=== PATIENT | male | born 1960 | race Caucasian/White ===

== ENCOUNTER 2017-08-23 20:20 | Inpatient (IN) | payer SELFPAY ==
[2017-08-23] MEDS ORDERED: Ampicillin/Sulbactam Na 3 GM in Sodium Chloride 0.9% 100 ML IV ONE (21:28)
--- NOTE | 2017-08-23 21:29 | EDM.PDOC ---
ED HPI GENERAL MEDICAL PROBLEM - General Chief Complaint: ENT Problem Stated Complaint: ISSUES BREATHING CURTIS ON WEDNESDAY Time Seen by Provider: 08/23/17 21:08 Source of Information: Reports: Patient History Limitations: Reports: No Limitations - History of Present Illness INITIAL COMMENTS - FREE TEXT/NARRATIVE: The patient states that he developed a foreign body sensation in his throat about one week ago. He states that it hurts to swallow, especially on the right. He states that he feels like he is choking, although does not have any difficulty breathing or speaking He has been taking ibuprofen, which initially helped a great deal, up until last night, when it stopped working. The patient acknowledges that he took 3 doses of some leftover antibiotics - he does not recall the name - on 08/16/2017 and 08/17/2017, which also did not help at all. He states that he was seen at the walk-in clinic this past Wednesday, 2017. He states that no tests were done, but that he was diagnosed with TMJ and prescribed Flexeril, which he states has not helped at all. The patient denies recent fever, nausea, vomiting, cuts patient, or diarrhea. The patient does not have a PCP. He does not recall when his last general physical exam was. Right Upper Neck Pain Score (Numeric/FACES): 6 - Related Data Allergies Allergy/AdvReac Type Severity Reaction Status Date / Time No Known Allergies Allergy Verified 08/23/17 20:30 Home Meds: Home Meds Cyclobenzaprine [Flexeril] 5 mg PO TID PRN 08/23/17 [History] Past Medical History Endocrine/Metabolic History: Reports: Obesity/BMI 30+ - Past Surgical History HEENT Surgical History: Reports: Oral Surgery ([place] teeth extraction) GI Surgical History: Reports: Hernia, Abdominal (umbilical, 2015) Neurological Surgical History: Reports: Lumbar Spine (laminectomy, 2013) Musculoskeletal Surgical History: Reports: Carpal Tunnel (right, 2011) Oncologic Surgical History: Reports: Other (See Below) (Basal cell carcinoma excised from left nostril 07/16/2017) Social & Family History - Family History Family Medical History: Noncontributory - Tobacco Use Smoking Status *Q: Former Smoker Years of Tobacco use: 37 Packs/Tins Daily: 1 Month/Year Tobacco Last Used: Quit 2015 - Alcohol Use Alcohol Use History: No - Recreational Drug Use Recreational Drug Use: No - Living Situation & Occupation Living situation: Reports: , with Spouse 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 ED EXAM, ENT - Physical Exam Exam: See Below Exam Limited By: No Limitations General Appearance: Alert, WD/WN, No Apparent Distress Eye Exam: Bilateral Eye: Normal Inspection Ears: Normal External Exam, Normal Canal, Hearing Grossly Normal, Normal TMs Nose: Normal Mucousa, No Blood, Other (Scar left nare) Mouth/Throat: Normal Gums, Normal Lips, Normal Teeth, Pharyngeal Erythema (On the right, with significant swelling and uvular deviation, consistent with peritonsillar cellulitis. The airway is not threatened.) Head: Atraumatic, Normocephalic Neck: Normal Inspection, Supple, Full Range of Motion. No: Lymphadenopathy (L) , Lymphadenopathy (R) (but tender to palpation) Respiratory/Chest: No Respiratory Distress, Lungs Clear, Normal Breath Sounds, No Accessory Muscle Use Cardiovascular: Normal Peripheral Pulses, Regular Rate, Rhythm, No Edema, No Gallop, No JVD, No Murmur, No Rub GI/Abdominal: Normal Bowel Sounds, Soft, Non-Tender, No Organomegaly, No Distention, No Abnormal Bruit, No Mass, Other (Obese) (Male) Exam: Deferred Rectal (Males) Exam: Deferred Back: Normal Inspection, Full Range of Motion Extremities: Normal Inspection, Normal Range of Motion, No Pedal Edema, Normal Capillary Refill Neurological: Alert, Oriented, Normal Cognition, No Motor/Sensory Deficits Psychiatric: Normal Affect Skin: Warm, Dry, Intact, Normal Color, No Rash Course - Vital Signs Last Recorded V/S: Last Vital Signs Temp 36.9 C 08/23/17 20:24 Pulse 94 08/23/17 20:24 Resp 16 08/23/17 20:24 BP 167/110 H 08/23/17 20:24 Pulse Ox 98 08/23/17 20:24 - Orders/Labs/Meds Orders: Active Orders 24 hr Category Date Time Status Soft Tissue Neck w Cont [CT] Stat Exams 08/23/17 21:23 Taken CBC WITH MANUAL DIFF [HEME] Stat Lab 08/23/17 21:35 Results Sodium Chloride 0.9% [Normal Saline] 1,000 ml Med 08/23/17 21:30 Active IV ASDIRECTED Sodium Chloride 0.9% [Saline Flush] Med 08/23/17 21:30 Active 10 ml FLUSH ONETIME PRN Medication Orders Sodium Chloride (Normal Saline) 1,000 mls @ 150 mls/hr IV ASDIRECTED TYE Last Admin: 08/23/17 21:47 Dose: 150 mls/hr Sodium Chloride (Saline Flush) 10 ml FLUSH ONETIME PRN PRN Reason: Keep Vein Open Last Admin: 08/23/17 21:46 Dose: 10 ml Labs: Laboratory Tests 08/23/17 08/23/17 Range/Units 21:35 21:35 WBC 9.75 H (4.23-9.07) K/mm3 RBC 4.97 (4.63-6.08) M/mm3 Hgb 14.5 (13.7-17.5) gm/L Hct 43.2 (40.1-51.0) % MCV 86.9 (79.0-92.2) fl MCH 29.2 (25.7-32.2) pg MCHC 33.6 (32.2-35.5) g/dl RDW Std Deviation 39.1 (35.1-43.9) fL Plt Count 270 (163-337) K/mm3 MPV 10.0 (9.4-12.3) fl Sodium 140 (136-145) mEq/L Potassium 4.0 (3.5-5.1) mEq/L Chloride 106 (98-107) mEq/L Carbon Dioxide 26 (21-32) mEq/L Anion Gap 12.0 (5-15) BUN 18 (7-18) mg/dL Creatinine 1.2 (0.7-1.3) mg/dL Est Cr Clr Drug Dosing 67.29 mL/min Estimated GFR (MDRD) > 60 (>60) mL/min BUN/Creatinine Ratio 15.0 (14-18) Glucose 107 H (74-106) mg/dL Calcium 8.9 (8.5-10.1) mg/dL Total Bilirubin 0.5 (0.2-1.0) mg/dL AST 19 (15-37) U/L ALT 41 (16-63) U/L Alkaline Phosphatase 70 (46-116) U/L Total Protein 7.1 (6.4-8.2) g/dl Albumin 3.5 (3.4-5.0) g/dl Globulin 3.6 gm/dL Albumin/Globulin Ratio 1.0 (1-2) Meds: Medications Generic Name Dose Route Start Last Admin Trade Name Freq PRN Reason Stop Dose Admin Sodium Chloride 1,000 mls @ 150 mls/hr 08/23/17 21:30 08/23/17 21:47 Normal Saline IV 150 mls/hr ASDIRECTED TYE Administration Sodium Chloride 10 ml 08/23/17 21:30 08/23/17 21:46 Saline Flush FLUSH 10 ml ONETIME PRN Administration Keep Vein Open Discontinued Medications Generic Name Dose Route Start Last Admin Trade Name Freq PRN Reason Stop Dose Admin Ampicillin Sodium/Sulbactam 100 mls @ 200 mls/hr 08/23/17 21:28 08/23/17 21: 48 Sodium 3 gm/ Sodium Chloride IV 08/23/17 21:57 200 mls/hr ONETIME ONE Administration Iopamidol 100 ml 08/23/17 21:30 08/23/17 21:46 Isovue-300 (61%) IVPUSH 08/23/17 21:31 80 ml ONETIME ONE Administration - Re-Assessments/Exams Free Text/Narrative Re-Assessment/Exam: 08/23/17 21:27 On examination, the patient appears to have right peritonsillar cellulitis, however, I have ordered a CT scan of the soft tissue of the neck, with contrast , to make sure that he does not have a peritonsillar abscess. In the meantime, I have ordered empiric Unasyn. 08/23/17 22:24 CT of the neck with IV contrast is read by virtual radiology as: Enlarged, low-attenuation [place] tonsil right side. The low-attenuation suggests a developing abscess but no defined, drainable abscess evident at this time. 08/23/17 23:05 Test results discussed with the patient. Current guidelines recommend IV antibiotics, therefore I recommended that the patient be admitted to the hospital. He agreed. Case then discussed with Dr. Marie at 23:02. She accepts the patient for permission to telemetry. Departure - Departure Time of Disposition: 23:06 Disposition: Admitted As Inpatient 67 Condition: Fair Clinical Impression: Peritonsillar cellulitis - Discharge Information - My Orders Last 24 Hours: My Active Orders 08/23/17 21:23 Soft Tissue Neck w Cont [CT] Stat 08/23/17 21:30 Sodium Chloride 0.9% [Normal Saline] 1,000 ml IV ASDIRECTED Sodium Chloride 0.9% [Saline Flush] 10 ml FLUSH ONETIME PRN 08/23/17 21:35 CBC WITH MANUAL DIFF [HEME] Stat - Assessment/Plan Last 24 Hours: My Active Orders 08/23/17 21:23 Soft Tissue Neck w Cont [CT] Stat 08/23/17 21:30 Sodium Chloride 0.9% [Normal Saline] 1,000 ml IV ASDIRECTED Sodium Chloride 0.9% [Saline Flush] 10 ml FLUSH ONETIME PRN 08/23/17 21:35 CBC WITH MANUAL DIFF [HEME] Stat
[2017-08-23] MEDS ORDERED: Iopamidol 612 MG/ML 100 ML Bottle IVPUSH ONE (21:30)
[2017-08-23] MEDS ORDERED: Sodium Chloride 0.9% 1,000 ML IV SCH (21:30)
[2017-08-23] MEDS ORDERED: Sodium Chloride 0.9% 10 ML Syringe FLUSH PRN (21:30)
[2017-08-24] MEDS ORDERED: Ibuprofen 600 MG Tab PO PRN (01:00)
[2017-08-24] MEDS ORDERED: Temazepam 15 MG Cap PO PRN (01:01)
[2017-08-24] MEDS ORDERED: Acetaminophen Soln 650 MG/20.3 ML UD Cup PO PRN (01:04)
[2017-08-24] MEDS: methylPREDNISolone Sodium Succinate 125 MG/2 ML SDV IVPUSH SCH ×3 (01:18→16:53)
[2017-08-24] MEDS ORDERED: Morphine 2 MG/ML Syringe IVPUSH PRN (01:31)
[2017-08-24] MEDS: Ampicillin/Sulbactam Na 3 GM in Sodium Chloride 0.9% 100 ML IV SCH ×3 (04:08→16:53)
--- NOTE | 2017-08-24 09:53 | PCM.HP ---
H&P History of Present Illness - General Date of Service: 08/24/17 Admit Problem/Dx: Admission Diagnosis/Problem Admission Diagnosis/Problem Peritonsillar cellulitis Source of Information: Patient History Limitations: Reports: No Limitations - History of Present Illness Initial Comments - Free Text/Narative: 56 year old male who had a [place] chip stuck in his throat approximately 1 week prior to admission. He reported taking random, unknown antibiotic pills which were left over from a previous infection on probably Wednesday, 08/17. On Wednesday, 08/18, he reportedly went to a walk in clinic, and was diagnosed with TMJ receiving a prescription for Flexeril. Subsequently he has been diagnosed with a peritonsillar cellulitis without airway compromise and will be admitted for IV antibiotics. Onset of Symptoms: Reports: Gradual Symptom Onset Date: 08/16/17 Duration of Symptoms: Reports: Week(s):, Getting Worse Location: Reports: Neck Quality: Reports: Throbbing Severity: Moderate Improves with: Reports: Medication Worsens with: Reports: None Associated Symptoms: Reports: Loss of Appetite, Malaise Right Upper Neck Pain Score (Numeric/FACES): 6 - Related Data Allergies/Adverse Reactions: Allergies Allergy/AdvReac Type Severity Reaction Status Date / Time No Known Allergies Allergy Verified 08/24/17 05:28 Home Medications: Home Meds . [No Known Home Meds] 08/24/17 [History] Past Medical History Endocrine/Metabolic History: Reports: Obesity/BMI 30+ Oncologic (Cancer) History: Reports: Basal Cell Carcinoma - Past Surgical History HEENT Surgical History: Reports: Oral Surgery, Other (See Below) Other HEENT Surgeries/Procedures: wears contacts GI Surgical History: Reports: Hernia, Abdominal Endocrine Surgical History: Reports: None Neurological Surgical History: Reports: Lumbar Spine Musculoskeletal Surgical History: Reports: Carpal Tunnel Oncologic Surgical History: Reports: Other (See Below) Social & Family History - Family History Family Medical History: Noncontributory - Tobacco Use Smoking Status *Q: Former Smoker Years of Tobacco use: 37 Packs/Tins Daily: 1 Used Tobacco, but Quit: No Month/Year Tobacco Last Used: Quit 2016 Tobacco Use Comment: pt states that he smoked for about 30 years and quit in 2016. 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) H&P Review of Systems - Review of Systems: Review Of Systems: See Below General: Reports: Malaise HEENT: Reports: Sore Throat Pulmonary: Reports: No Symptoms Cardiovascular: Reports: No Symptoms Gastrointestinal: Reports: No Symptoms Genitourinary: Reports: No Symptoms Musculoskeletal: Reports: No Symptoms Skin: Reports: No Symptoms Psychiatric: Reports: No Symptoms Neurological: Reports: No Symptoms Hematologic/Lymphatic: Reports: No Symptoms Immunologic: Reports: No Symptoms Exam - Exam Exam: See Below - Vital Signs Vital Signs: Last Vital Signs Temp 37.3 C 08/24/17 04:12 Pulse 65 08/24/17 04:12 Resp 2 L 08/24/17 04:12 BP 128/84 08/24/17 04:12 Pulse Ox 92 L 08/24/17 04:12 Weight: 109.543 kg - Exam General: Alert, Oriented, Cooperative HEENT: Conjunctiva Clear, Mucosa Moist & [place], Pupils Equal, Pupils Reactive, Other (mild erythema, post pharynx), PERRLA Neck: Trachea Midline Lungs: Normal Respiratory Effort Cardiovascular: Regular Rate, Regular Rhythm GI/Abdominal Exam: Normal Bowel Sounds, Soft, Non-Tender, No Organomegaly, No Distention (Male) Exam: Deferred Rectal (Males) Exam: Deferred Back Exam: Normal Inspection Extremities: Normal Inspection, Non-Tender, No Pedal Edema Skin: Warm Neurological: Cranial Nerves Intact Neuro Extensive - Mental Status: Alert, Oriented x3, Normal Mood/Affect, Normal Cognition, Memory Intact Neuro Extensive - Motor, Sensory, Reflexes: CN II-XII Intact, Normal Gait, Normal Reflexes Psychiatric: Alert, Normal Affect, Normal Mood - Patient Data Lab Results Last 24 hrs: Laboratory Results - last 24 hr 08/23/17 08/23/17 08/24/17 Range/Units 21:35 21:35 06:10 WBC 9.75 H 8.37 (4.23-9.07) K/mm3 RBC 4.97 5.09 (4.63-6.08) M/mm3 Hgb 14.5 15.1 (13.7-17.5) gm/L Hct 43.2 44.1 (40.1-51.0) % MCV 86.9 86.6 (79.0-92.2) fl MCH 29.2 29.7 (25.7-32.2) pg MCHC 33.6 34.2 (32.2-35.5) g/dl RDW Std Deviation 39.1 39.0 (35.1-43.9) fL Plt Count 270 270 (163-337) K/mm3 MPV 10.0 10.1 (9.4-12.3) fl Neut % (Auto) 89.3 H (34.0-67.9) % Lymph % (Auto) 9.1 L (21.8-53.1) % [place] % (Auto) 1.2 L (5.3-12.2) % Eos % (Auto) 0 L (0.8-7.0) Baso % (Auto) 0.2 (0.1-1.2) % Neut # (Auto) 7.47 H (1.78-5.38) K/mm3 Lymph # (Auto) 0.76 L (1.32-3.57) K/mm3 [place] # (Auto) 0.10 L (0.30-0.82) K/mm3 Eos # (Auto) 0.00 L (0.04-0.54) K/mm3 Baso # (Auto) 0.02 (0.01-0.08) K/mm3 Neutrophils % (Manual) 58 (40-60) % Band Neutrophils % 0 (0-10) % Lymphocytes % (Manual) 22 (20-40) % Atypical Lymphs % 3 % Monocytes % (Manual) 13 H (2-10) % Eosinophils % (Manual) 4 (0.8-7.0) % Basophils % (Manual) 0 L (0.2-1.2) Manual Slide Review Abnormal smear Platelet Estimate Adequate Plt Morphology Comment Normal RBC Morph Comment Normal Sodium 140 (136-145) mEq/L Potassium 4.0 (3.5-5.1) mEq/L Chloride 106 (98-107) mEq/L Carbon Dioxide 26 (21-32) mEq/L Anion Gap 12.0 (5-15) BUN 18 (7-18) mg/dL Creatinine 1.2 (0.7-1.3) mg/dL Est Cr Clr Drug Dosing 67.29 mL/min Estimated GFR (MDRD) > 60 (>60) mL/min BUN/Creatinine Ratio 15.0 (14-18) Glucose 107 H (74-106) mg/dL Lactic Acid (0.4-2.0) mmol/L Calcium 8.9 (8.5-10.1) mg/dL Magnesium (1.8-2.4) mg/dl Total Bilirubin 0.5 (0.2-1.0) mg/dL AST 19 (15-37) U/L ALT 41 (16-63) U/L Alkaline Phosphatase 70 (46-116) U/L C-Reactive Protein (<1.0) mg/dL Total Protein 7.1 (6.4-8.2) g/dl Albumin 3.5 (3.4-5.0) g/dl Globulin 3.6 gm/dL Albumin/Globulin Ratio 1.0 (1-2) 08/24/17 08/24/17 Range/Units 06:10 06:10 WBC (4.23-9.07) K/mm3 RBC (4.63-6.08) M/mm3 Hgb (13.7-17.5) gm/L Hct (40.1-51.0) % MCV (79.0-92.2) fl MCH (25.7-32.2) pg MCHC (32.2-35.5) g/dl RDW Std Deviation (35.1-43.9) fL Plt Count (163-337) K/mm3 MPV (9.4-12.3) fl Neut % (Auto) (34.0-67.9) % Lymph % (Auto) (21.8-53.1) % [place] % (Auto) (5.3-12.2) % Eos % (Auto) (0.8-7.0) Baso % (Auto) (0.1-1.2) % Neut # (Auto) (1.78-5.38) K/mm3 Lymph # (Auto) (1.32-3.57) K/mm3 [place] # (Auto) (0.30-0.82) K/mm3 Eos # (Auto) (0.04-0.54) K/mm3 Baso # (Auto) (0.01-0.08) K/mm3 Neutrophils % (Manual) (40-60) % Band Neutrophils % (0-10) % Lymphocytes % (Manual) (20-40) % Atypical Lymphs % % Monocytes % (Manual) (2-10) % Eosinophils % (Manual) (0.8-7.0) % Basophils % (Manual) (0.2-1.2) Manual Slide Review Platelet Estimate Plt Morphology Comment RBC Morph Comment Sodium 139 (136-145) mEq/L Potassium 4.2 (3.5-5.1) mEq/L Chloride 105 (98-107) mEq/L Carbon Dioxide 23 (21-32) mEq/L Anion Gap 15.2 H (5-15) BUN 15 (7-18) mg/dL Creatinine 1.1 (0.7-1.3) mg/dL Est Cr Clr Drug Dosing 73.41 mL/min Estimated GFR (MDRD) > 60 (>60) mL/min BUN/Creatinine Ratio 13.6 L (14-18) Glucose 160 H (74-106) mg/dL Lactic Acid 1.2 (0.4-2.0) mmol/L Calcium 9.3 (8.5-10.1) mg/dL Magnesium 2.0 (1.8-2.4) mg/dl Total Bilirubin (0.2-1.0) mg/dL AST (15-37) U/L ALT (16-63) U/L Alkaline Phosphatase (46-116) U/L C-Reactive Protein 3.8 H* (<1.0) mg/dL Total Protein (6.4-8.2) g/dl Albumin (3.4-5.0) g/dl Globulin gm/dL Albumin/Globulin Ratio (1-2) Result Diagrams: 08/24/17 06:10 08/24/17 06:10 - Problem List (1) Hypertension SNOMED Code(s): 79790839 ICD Code: I10 - ESSENTIAL (PRIMARY) HYPERTENSION Status: Acute Current Visit: Yes (2) Peritonsillar cellulitis SNOMED Code(s): 371211535 ICD Code: J36 - PERITONSILLAR ABSCESS Status: Acute Current Visit: Yes Problem List Initiated/Reviewed/Updated: Yes Orders Last 24hrs: Active Orders 24 hr Category Date Time Status Admission Status [Patient Status] [ADT] Routine ADT 08/23/17 23:39 Active Activity as Tolerated [RC] .Routine Care 08/24/17 01:06 Active Clear Liquid Diet [DIET] Diet 08/24/17 Breakfast Active Soft Tissue Neck w Cont [CT] Stat Exams 08/23/17 21:23 Taken Acetaminophen [Tylenol] Med 08/24/17 01:04 Active 650 mg PO Q6H PRN Ampicillin/Sulbactam Na [Unasyn] 3 gm Med 08/24/17 05:00 Active Sodium Chloride 0.9% [Normal Saline] 100 ml IV Q6H Ibuprofen [Motrin] Med 08/24/17 01:00 Active 600 mg PO Q6H PRN Morphine Med 08/24/17 01:31 Active 1 mg IVPUSH Q8H PRN Sodium Chloride 0.9% [Saline Flush] Med 08/23/17 21:30 Active 10 ml FLUSH ONETIME PRN Temazepam [Restoril] Med 08/24/17 01:01 Active 15 mg PO BEDTIME PRN methylPREDNISolone Sod Succ [Solu-MEDROL] Med 08/24/17 01:00 Active 125 mg IVPUSH Q8H FRANK Hose [Antiembolic Hose] [OM.PC] Routine Oth 08/24/17 01:06 Ordered Code Status [Resuscitation Status] Routine Resus Stat 08/24/17 00:45 Ordered Medication Orders Acetaminophen (Tylenol) 650 mg PO Q6H PRN PRN Reason: Pain/Fever Ampicillin Sodium/Sulbactam (Sodium 3 gm/ Sodium Chloride) 100 mls @ 200 mls/ hr IV Q6H [facility] Last Admin: 08/24/17 04:08 Dose: 200 mls/hr Ibuprofen (Motrin) 600 mg PO Q6H PRN PRN Reason: Pain Methylprednisolone Sodium Succinate (Solu-Medrol) 125 mg IVPUSH Q8H [facility] Last Admin: 08/24/17 08:34 Dose: 125 mg Admin: 08/24/17 01:18 Dose: 125 mg Morphine Sulfate (Morphine) 1 mg IVPUSH Q8H PRN PRN Reason: Pain Sodium Chloride (Saline Flush) 10 ml FLUSH ONETIME PRN PRN Reason: Keep Vein Open Last Admin: 08/23/17 21:46 Dose: 10 ml Temazepam (Restoril) 15 mg PO BEDTIME PRN PRN Reason: Sleep Assessment/Plan Comment:: Impression: Peritonsillar cellulitis w/o abscess--no airway compromise (Right sided edema/erythema [place] tonsil) Q!uery hypertension Query Hyperlipidemia; metabolic syndrome Plan: Continue Unasyn IV q 6H; DC 08/25 on Augmentin 875 mg BID (10 days) Solumedrol 125 mg IV q 8H for 3 doses Analgesics Follow up DMD/DDS; establish PCP re: secondary/primary prevention Dietary consult re: DASH; wt loss DVT/GI prophylaxis
--- NOTE | 2017-08-24 10:07 | CT ---
CT neck Technique: Multiple axial sections were obtained from above the external auditory canals inferiorly to the lung apices. Intravenous contrast was utilized. Reconstructed coronal and sagittal images were obtained. Comparison: No previous study. Findings: Edema with soft tissue swelling is seen within the right peritonsillar region. This causes some narrowing of the adjacent hypopharynx. Left-sided peritonsillar soft tissues appear normal. Parotid and submandibular salivary glands appear normal. Visualized lung apices are clear. Thyroid gland shows no discrete nodule. No adenopathy is seen within the neck. No prevertebral soft tissue swelling is seen. Bone window settings were reviewed which show mild degenerative change within the spine and incidental ligamentum nuchal calcification. Impression: 1. Edema with soft tissue swelling within the right peritonsillar region compatible with early peritonsillar abscess and infection. No drainable fluid collections are seen at this time. 2. Other incidental findings. Diagnostic code #3 Agree with preliminary report issued by [facility] ([facility] preliminary report dictated on 08/15/17, 10:55 PM Central Time)
[2017-08-25] MEDS: Ampicillin/Sulbactam Na 3 GM in Sodium Chloride 0.9% 100 ML IV SCH ×2 (00:10→05:12)
--- NOTE | 2017-08-25 06:48 | PCM.DCSUM1 ---
Discharge Summary - Hospital Course HPI Initial Comments: 56 year old male who had a Dorito chip stuck in his throat approximately 1 week prior to admission. He reported taking random, unknown antibiotic pills which were left over from a previous infection on probably Wednesday, 08/17. On Wednesday, 08/18, he reportedly went to a walk in clinic, and was diagnosed with TMJ receiving a prescription for Flexeril. Subsequently he has been diagnosed with a peritonsillar cellulitis without airway compromise and will be admitted for IV antibiotics. - Discharge Data Discharge Date: 08/25/17 (Admit Date: 08/24/17) Discharge Disposition: Home, Self-Care 01 Condition: Good - Discharge Diagnosis/Problem(s) (1) Hypertension SNOMED Code(s): 24500413 ICD Code: I10 - ESSENTIAL (PRIMARY) HYPERTENSION Status: Acute Priority: High Current Visit: Yes Qualifiers: Hypertension type: unspecified Qualified Code(s): I10 - Essential (primary ) hypertension (2) Peritonsillar cellulitis SNOMED Code(s): 147853228 ICD Code: J36 - PERITONSILLAR ABSCESS Status: Acute Priority: High Current Visit: Yes (3) Hyperlipemia SNOMED Code(s): 87793420 ICD Code: E78.5 - HYPERLIPIDEMIA, UNSPECIFIED Status: Acute Priority: Medium Current Visit: Yes Qualifiers: Hyperlipidemia type: unspecified Qualified Code(s): E78.5 - Hyperlipidemia , unspecified - Patient Summary/Data Consults: Consultations 08/24/17 11:47 Consult to Dietary [Consult to Cash Control Specialist] [CONS] Routine Labs Pending at D/C: none Recommended Follow-up Testing/Procedures: Establish with a PCP. Follow-up with PCP within 10-14 days of discharge, sooner if needed. Follow-up with PCP for HLD and HTN. Hospital Course: Impression: Peritonsillar cellulitis w/o abscess--no airway compromise (Right sided edema/erythema Coleridge tonsil) Query hypertension Query Hyperlipidemia; metabolic syndrome Lipid panel: Triglycerides 51, Total Cholesterol 176, LDL 122, HDL 45 A1C 5.9 Plan: Continue Unasyn IV q 6H; DC 08/25 on Augmentin 875 mg BID (10 days) Solumedrol 125 mg IV q 8H for 3 doses Analgesics Follow up DMD/DDS; establish PCP re: secondary/primary prevention Dietary consult re: DASH; wt loss DVT/GI prophylaxis Overall Sergio did very well. His pain subsided and his labs improved. His WBC was elevated today - likely from steroids. His CRP has lowered. Lipid panel was obtained and is listed above. He has not seen a PCP and would like to establish here at [facility]. He should check his BP TID and record this in a journal, bringing it with to all medical appointments. He reports he has "been on the bubble" for sometime with his BP. A1C was 5.9 He will be discharged on 10 days PO Augmentin BID. He should follow-up with his PCP within 10-14 days, sooner if needed. His PCP should also monitor his lipids and BP as he would like to try some lifestyle modifications currently. - Patient Instructions Diet: Regular Diet as Tolerated Activity: As Tolerated Notify Provider of: Fever, Increased Pain, Nausea and/or Vomiting (worsening difficulty swallowing ) - Discharge Plan Prescriptions/Med Rec: Amoxicillin/Potassium Clav [Augmentin 875-125 Tablet] 1 each PO BID 10 Days #20 tablet Home Medications: Home Meds Amoxicillin/Potassium Clav [Augmentin 875-125 Tablet] 1 each PO BID 10 Days #20 tablet 08/25/17 [Rx] Patient Handouts: DASH Eating Plan, Peritonsillar Cellulitis, Hypertension - Discharge Summary/Plan Comment DC Time >30 min.: Yes (45 mins) - General Info Date of Service: 08/25/17 Admission Dx/Problem (Free Text: Admission Diagnosis/Problem Admission Diagnosis/Problem Peritonsillar cellulitis Functional Status: Reports: Pain Controlled, Tolerating Diet, Ambulating, Urinating. Denies: New Symptoms - Review of Systems General: Reports: No Symptoms. Denies: Fever, Weakness, Fatigue, Malaise HEENT: Reports: Sore Throat (improving ). Denies: Eye Pain, Post Nasal Drip, Sinus Congestion Pulmonary: Reports: No Symptoms. Denies: Shortness of Breath, Cough, Sputum, Wheezing Cardiovascular: Reports: No Symptoms. Denies: Chest Pain, Palpitations, Dyspnea on Exertion, Edema, Lightheadedness Gastrointestinal: Reports: No Symptoms. Denies: Abdominal Pain, Constipation, Decreased Appetite, Diarrhea, Difficulty Swallowing, Nausea, Vomiting Genitourinary: Reports: No Symptoms. Denies: Dysuria, Frequency, Burning, Pain , Urgency Musculoskeletal: Reports: No Symptoms. Denies: Neck Pain Skin: Reports: No Symptoms Neurological: Reports: No Symptoms Psychiatric: Reports: No Symptoms - Patient Data Vitals - Most Recent: Last Vital Signs Temp 98.4 F 08/25/17 05:18 Pulse 66 08/25/17 05:18 Resp 20 08/25/17 05:18 BP 130/91 H 08/25/17 05:18 Pulse Ox 94 L 08/25/17 05:18 Weight - Most Recent: 239 lb I&O - Last 24 hours: Intake & Output 08/24/17 08/24/17 08/25/17 14:59 22:59 06:59 Intake Total 300 960 600 Output Total 1700 1600 Balance 300 740 -1000 Lab Results - Last 24 hrs: Laboratory Results - last 24 hr 08/24/17 08/24/17 08/24/17 Range/Units 06:10 06:10 06:10 Manual Slide Review Abnormal smear Sodium 139 (136-145) mEq/L Potassium 4.2 (3.5-5.1) mEq/L Chloride 105 (98-107) mEq/L Carbon Dioxide 23 (21-32) mEq/L Anion Gap 15.2 H (5-15) BUN 15 (7-18) mg/dL Creatinine 1.1 (0.7-1.3) mg/dL Est Cr Clr Drug Dosing 73.41 mL/min Estimated GFR (MDRD) > 60 (>60) mL/min BUN/Creatinine Ratio 13.6 L (14-18) Glucose 160 H (74-106) mg/dL Lactic Acid 1.2 (0.4-2.0) mmol/L Calcium 9.3 (8.5-10.1) mg/dL Magnesium 2.0 (1.8-2.4) mg/dl C-Reactive Protein 3.8 H* (<1.0) mg/dL Med Orders - Current: Current Medications Acetaminophen (Tylenol) 650 mg PO Q6H PRN PRN Reason: Pain/Fever Last Admin: 08/24/17 18:32 Dose: 650 mg Ampicillin Sodium/Sulbactam (Sodium 3 gm/ Sodium Chloride) 100 mls @ 200 mls/ hr IV Q6H TYE Last Admin: 08/25/17 05:12 Dose: 200 mls/hr Ibuprofen (Motrin) 600 mg PO Q6H PRN PRN Reason: Pain Sodium Chloride (Saline Flush) 10 ml FLUSH ONETIME PRN PRN Reason: Keep Vein Open Last Admin: 08/23/17 21:46 Dose: 10 ml Temazepam (Restoril) 15 mg PO BEDTIME PRN PRN Reason: Sleep Discontinued Medications Sodium Chloride (Normal Saline) 1,000 mls @ 150 mls/hr IV ASDIRECTED [facility] Last Admin: 08/23/17 21:47 Dose: 150 mls/hr Ampicillin Sodium/Sulbactam (Sodium 3 gm/ Sodium Chloride) 100 mls @ 200 mls/ hr IV ONETIME ONE Stop: 08/23/17 21:57 Last Admin: 08/23/17 21:48 Dose: 200 mls/hr Iopamidol (Isovue-300 (61%)) 100 ml IVPUSH ONETIME ONE Stop: 08/23/17 21:31 Last Admin: 08/23/17 21:46 Dose: 80 ml Methylprednisolone Sodium Succinate (Solu-Medrol) 125 mg IVPUSH Q8H [facility] Last Admin: 08/24/17 16:53 Dose: 125 mg Morphine Sulfate (Morphine) 1 mg IVPUSH Q8H PRN PRN Reason: Pain - Exam Quality Assessment: Denies: Supplemental Oxygen, DVT Prophylaxis General: Denies: Alert, Oriented, Cooperative, No Acute Distress HEENT: Reports: Pupils Equal, Other (mild to resolved erythema to posterior oropharynx). Denies: Pupils Reactive, EOMI, Mucous Membr. Moist/[place] Neck: Denies: Supple, Trachea Midline, No JVD Lungs: Reports: Clear to Auscultation, Normal Respiratory Effort Cardiovascular: Reports: Regular Rate, Regular Rhythm GI/Abdominal Exam: Normal Bowel Sounds, Soft, Non-Tender, No Organomegaly, No Distention (Male) Exam: Deferred Rectal (Males) Exam: Deferred Back Exam: Reports: Normal Inspection, Full Range of Motion Extremities: Normal Inspection, Normal Range of Motion, Non-Tender, No Pedal Edema, Normal Capillary Refill Skin: Reports: Warm, Dry, Intact Neurological: Reports: No New Focal Deficit Psy/Mental Status: Reports: Alert, Normal Affect, Normal Mood
== END 2017-08-25 09:10 | disposition home or self-care (01) | DRG 153 ==
LOC: JD.ED 20:20 → JD.MS 23:39
PROVIDERS: ADMIT Internal Medicine Cardiovascular Disease; ATTEND Internal Medicine Cardiovascular Disease
DX: J36 Peritonsillar abscess (principal); E78.5 Hyperlipidemia, unspecified; I10 Essential (primary) hypertension; E88.81 Metabolic syndrome and other insulin resistance; M26.609 Unspecified temporomandibular joint disorder, unspecified side; E66.9 Obesity, unspecified; Z68.36 Body mass index [BMI] 36.0-36.9, adult; Z85.828 Personal history of other malignant neoplasm of skin; Z87.891 Personal history of nicotine dependence
CPT/HCPCS: 36415; 70491; 70491-26; 80048; 80053; 80061; 83036; 83605; 83735; 85007; 85025; 85027; 86140; 96361; 96365; 99285-25; A9270-GY; J0295; J2930; J7030; J7040; J7050; Q9967

== ENCOUNTER 2021-07-31 18:51 | Emergency (ER) | payer BC ==
[2021-07-31] MEDS ORDERED: Proparacaine 0.5% Ophth Soln 15 ML Bottle EYELF STA (19:50)
[2021-07-31] MEDS ORDERED: Fluorescein 1 MG Ophth Strip EYELF STA (19:51)
[2021-07-31] MEDS ORDERED: Erythromycin Base 0.5% Ophth Oint 1 GM Tube EYELF STA (20:07)
== END 2021-07-31 20:19 | disposition home or self-care (01) ==
LOC: JD.ED 18:51
DX: H16.002 Unspecified corneal ulcer, left eye (principal); E66.9 Obesity, unspecified; Z87.891 Personal history of nicotine dependence; Z68.33 Body mass index [BMI] 33.0-33.9, adult
CPT/HCPCS: 99283; A9270

== ENCOUNTER 2021-11-11 07:59 | Day surgery (SDC) | payer BC ==
[~2021-11-11 07:59] MED LIST: Lactated Ringers 1,000 ML IV SCH; Lidocaine 1%/Sod Bicarbonate in NS 8.4% 1 ML Syringe IDERM PRN; Sodium Chloride 0.9% 10 ML Syringe FLUSH PRN; Sodium Chloride 0.9% 10 ML Syringe FLUSH SCH
[2021-11-11] MEDS ORDERED: Albuterol 0.083% 2.5 MG/3 ML Neb Soln NEB SCH (08:34)
[2021-11-11] MEDS ORDERED: Propofol 200 MG/20 ML SDV ONE (09:31)
[2021-11-11] MEDS ORDERED: fentaNYL 100 MCG/2 ML SDV ONE (09:31)
[2021-11-11] MEDS ORDERED: Midazolam 1 MG/ML 2 ML SDV ONE (09:32)
== END 2021-11-11 10:25 | disposition home or self-care (01) ==
LOC: JD.SDS 07:59
PROVIDERS: ATTEND Surgery
DX: Z12.11 Encounter for screening for malignant neoplasm of colon (principal); I10 Essential (primary) hypertension; E66.9 Obesity, unspecified; E78.00 Pure hypercholesterolemia, unspecified; G47.30 Sleep apnea, unspecified; M19.90 Unspecified osteoarthritis, unspecified site; R73.03 Prediabetes; E55.9 Vitamin D deficiency, unspecified; Z86.16 Personal history of COVID-19; Z87.891 Personal history of nicotine dependence; Z79.899 Other long term (current) drug therapy; Z79.83 Long term (current) use of bisphosphonates; Z68.34 Body mass index [BMI] 34.0-34.9, adult
CPT/HCPCS: 00812; J2250; J2704; J3010; J7120